=== PATIENT | female | born 1985 | race Caucasian/White ===

== ENCOUNTER → 2018-01-21 | Outpatient (CLI) | payer OTHER ==
--- NOTE | 2018-01-21 17:54 | US ---
EXAMINATION TYPE: US transvaginal DATE OF EXAM: 01/21/2018 COMPARISON: NONE CLINICAL HISTORY: N91.4 secondary oligomenorrhea. TECHNIQUE: . Transvaginal sonographic images of the pelvis were acquired. Date of LMP: Irregular cycles. Patient states 2-4 cycles per year EXAM MEASUREMENTS: Uterus: 6.5 x 3.5 x 3.8 cm Endometrial Stripe: 1.4 cm Right Ovary: 3.0 x 2.3 x 2.1 cm Left Ovary: 3.3 x 2.2 x 2.2 cm 1. Uterus: Anteverted wnl 2. Endometrium: Multiple cystic appearing areas visualized within endometrium. Measuring upper limit s of nomal 3. Right Ovary: Multiple follicles visualized along the periphery of the ovary 4. Left Ovary: Multiple follicles visualized along the periphery of the ovary. 5. Bilateral Adnexa: wnl 6. Posterior cul-de-sac: wnl IMPRESSION: Mild hypertrophy of the endometrium. No endometrial mass.
== END | disposition home or self-care (01) ==
LOC: RADUSWWP 16:51
PROVIDERS: ATTEND Obstetrics & Gynecology
DX: N85.00 Endometrial hyperplasia, unspecified (principal)
CPT/HCPCS: 76830

== ENCOUNTER → 2018-08-13 | Outpatient (CLI) | payer OTHER ==
--- NOTE | 2018-08-13 12:31 | MM ---
Reason for exam: clinical finding. Last mammogram was performed 8 months ago. Physical Findings: Nurse did not find any significant physical abnormalities on exam. [facility] Mammo LT w CAD CC and MLO view(s) were taken of the left breast. Prior study comparison: December 09, 2017, mammogram. The breast tissue is heterogeneously dense. This may lower the sensitivity of mammography. There is no discrete abnormality. These results were verbally communicated with the patient and result sheet given to the patient on 08/13/18. ASSESSMENT: Negative, BI-RAD 1 RECOMMENDATION: Routine screening mammogram of both breasts at age 42. Manage on a clinical basis with regard to non-spontaneous nipple discharge.
== END | disposition home or self-care (01) ==
LOC: RADMAMWWP 07:28
PROVIDERS: ATTEND Internal Medicine
DX: N64.4 Mastodynia (principal)
CPT/HCPCS: 77065

== ENCOUNTER 2019-05-01 13:25 | Emergency (ER) | payer OTHER ==
[2019-05-01 13:45] VITALS: BP 133/63; PULSE 103; RESP 18; TEMP 97.8
[2019-05-01] MEDS ORDERED: ACET/COD 300 MG/30 MG STARTER PACK 6 TAB BTL PO STA (14:27)
--- NOTE | 2019-05-01 14:28 | ED ---
Back Pain HPI - General Chief Complaint: Back Pain/Injury Stated Complaint: Low back pain Time Seen by Provider: 05/01/19 14:15 Source: patient, RN notes reviewed Limitations: no limitations - History of Present Illness Initial Comments: 34-year-old female presents to the emergency Department with chief complaint of low back pain. Patient states she injured it a few weeks ago raking leaves. States in the first 30 minutes of raking leaves she had some pain but states that she continues to work for the next 2 hours. Patient states the pain has improved but states that has not resolved. Denies any bowel bladder incontinence or retention. No abdominal pain she occasionally has some pain at reexamined her left leg. No paresthesias no saddle anesthesias. Patient has downing d prior x-rays on her back with mild degenerative changes. Patient offers no complaints. - Related Data Home Medications Medication Instructions Recorded Confirmed Escitalopram [Lexapro] 10 mg PO DAILY 05/10/18 05/14/18 Levothyroxine Sodium 25 mcg PO DAILY 05/10/18 05/14/18 Previous Rx's Medication Instructions Recorded Cyclobenzaprine [Flexeril] 5 mg PO TID PRN #15 tablet 05/01/19 Ibuprofen [Motrin] 600 mg PO Q8HR PRN #20 tab 05/01/19 predniSONE 50 mg PO DAILY #5 tab 05/01/19 Allergies Allergy/AdvReac Type Severity Reaction Status Date / Time No Known Allergies Allergy Verified 05/01/19 13:45 Review of Systems ROS Statement: Those systems with pertinent positive or pertinent negative responses have been documented in the HPI. ROS Other: All systems not noted in ROS Statement are negative. Past Medical History Past Medical History: Thyroid Disorder Additional Past Medical History / Comment(s): Anemia - receiving Iron infusion x 5 days, PCOS History of Any Multi-Drug Resistant Organisms: C-DIFF Date of last positivie culture/infection: April 06, 2018 April 28, 2018 - cleared of C-Diff MDRO Source:: stool Past Surgical History: Cholecystectomy, Tonsillectomy Past Psychological History: Anxiety, Depression Smoking Status: Current every day smoker Past Alcohol Use History: Occasional Past Drug Use History: None Reported General Exam Limitations: no limitations General appearance: alert, in no apparent distress Head exam: Present: atraumatic, normocephalic, normal inspection Eye exam: Present: normal appearance, PERRL, EOMI. Absent: scleral icterus, conjunctival injection, periorbital swelling ENT exam: Present: normal exam, normal oropharynx, mucous membranes moist Respiratory exam: Present: normal lung sounds bilaterally. Absent: respiratory distress, wheezes, rales, rhonchi, stridor Cardiovascular Exam: Present: regular rate, normal rhythm, normal heart sounds. Absent: systolic murmur, diastolic murmur, rubs, gallop, clicks GI/Abdominal exam: Present: soft, normal bowel sounds. Absent: distended, tenderness, guarding, rebound, rigid Extremities exam: Present: normal inspection, full ROM, normal capillary refill, other (Lower extremities equal color equal strength neurovascular intact). Absent: tenderness, pedal edema, joint swelling, calf tenderness Back exam: Present: normal inspection, full ROM (Mild discomfort with range of motion lumbar), tenderness (Left lower lumbar), muscle spasm, paraspinal tenderness. Absent: vertebral tenderness Neurological exam: Present: alert, oriented X3, CN II-XII intact, reflexes normal. Absent: motor sensory deficit Course Vital Signs 05/01/19 13:41 Temperature 97.8 F Pulse Rate 103 H Respiratory 18 Rate Blood Pressure 133/63 O2 Sat by Pulse 98 Oximetry Medical Decision Making - Medical Decision Making Patient has a lumbar strain with no red flag symptoms. Patient's had prior imaging she had no dramatic injury at this time. Conservative treatment including heat rest ice and close follow-up will be started. Return parameters were discussed Disposition Clinical Impression: Strain of lumbar region Disposition: HOME SELF-CARE Condition: Stable Instructions (If sedation given, give patient instructions): Acute Low Back Pain (ED) Additional Instructions: Please return to the Emergency Department if symptoms worsen or any other concerns. Prescriptions: Cyclobenzaprine [Flexeril] 5 mg PO TID PRN #15 tablet PRN Reason: Muscle Spasm Ibuprofen [Motrin] 600 mg PO Q8HR PRN #20 tab PRN Reason: Pain predniSONE 50 mg PO DAILY #5 tab Is patient prescribed a controlled substance at d/c from ED?: No Referrals: Evens Ramos MD [Primary Care Provider] - 1-2 days Time of Disposition: 14:28
== END 2019-05-01 14:42 | disposition home or self-care (01) ==
LOC: EC 13:25
DX: S39.012A Strain of muscle, fascia and tendon of lower back, initial encounter (principal); M79.605 Pain in left leg; E07.9 Disorder of thyroid, unspecified; D64.9 Anemia, unspecified; F32.9 Major depressive disorder, single episode, unspecified; F41.9 Anxiety disorder, unspecified; F17.200 Nicotine dependence, unspecified, uncomplicated; Z79.890 Hormone replacement therapy; Z79.899 Other long term (current) drug therapy; X50.9XXA Other and unspecified overexertion or strenuous movements or postures, initial encounter; Y93.H1 Activity, digging, shoveling and raking
CPT/HCPCS: 99283

== ENCOUNTER → 2019-05-02 | Outpatient (CLI) | payer OTHER ==
--- NOTE | 2019-05-02 13:48 | US ---
EXAMINATION TYPE: US bladder DATE OF EXAM: 05/02/2019 COMPARISON: NONE CLINICAL HISTORY: R10.2 PELVIC AND PERINEAL PAIN. Pelvic pain EXAM MEASUREMENTS: Post Void Residual Volume: 10.6 mL Urinary bladder is anechoic and unremarkable with no wall thickening. Color Doppler performed to assess ureteral jets. Bilateral Jets seen: yes Normal Post Void Residual (less than 50ml): yes IMPRESSION: No abnormal post void residual in the urinary bladder. Urinary bladder is anechoic and u nremarkable with bilateral urinary bladder jets visualized.
--- NOTE | 2019-05-02 13:49 | US ---
EXAMINATION TYPE: US transvaginal DATE OF EXAM: 05/02/2019 COMPARISON: NONE CLINICAL HISTORY: R10.2 Pelvic and perineal pain. Pelvic pain, irregular menses TECHNIQUE: Transvaginal (TV). Date of LMP: 4 months ago EXAM MEASUREMENTS: Uterus: 7.9 x 3.6 x 4.9 cm Endometrial Stripe: 0.9 cm Right Ovary: 4.0 x 2.0 x 1.8 cm Left Ovary: 2.9 x 2.0 x 1.9 cm 1. Uterus: Anteverted 2. Endometrium: multiple cystic areas noted [place]/upper cervix, likely small nabothian cysts. 3. Right Ovary: follicles noted, physiologic 4. Left Ovary: follicles noted, physiologic 5. Bilateral Adnexa: appears wnl 6. Posterior cul-de-sac: wnl IMPRESSION: Unremarkable pelvic ultrasound. Physiologic follicular changes of the ovaries. Endometria l thickness is within normal limits.
== END | disposition home or self-care (01) ==
LOC: RADUSWWP 12:07
PROVIDERS: ATTEND Obstetrics & Gynecology
DX: R10.2 Pelvic and perineal pain (principal)
CPT/HCPCS: 76830; 76857

== ENCOUNTER → 2019-11-14 | Outpatient (CLI) | payer BC ==
--- NOTE | 2019-11-15 10:29 | MR ---
EXAMINATION TYPE: MR pelvis wo/w con DATE OF EXAM: 11/14/2019 COMPARISON: Bladder and vaginal ultrasound May 02, 2019. HISTORY: Periurethral cyst, cyst in the opening of the vagina per patient. CONTRAST: Standard multiplanar, multisequence MRI departmental protocol utilizing 11 mL intravenous Gadavist ga dolinium contrast. Imaging is performed of the pelvis. FINDINGS: Rectum and visualized sigmoid colon are unremarkable. Anterior to this there is an anteverted uterus with a few tiny nabothian cysts in the cervix. No free fluid in pelvic cul-de-sac. Both ovaries are identified and normal in size with scattered peripheral follicles on the coronal images. Anterior to this urinary bladder shows suboptimal distention with bladder wall thickness measuring up per limits of normal. No suspicious intraluminal mass is present. Some filling of contrast dependentl y is felt present on postcontrast images. There is poor fat plane separation of the posterior bladder wall from the anterior cervix. Corresponding to the history there is just posterior to the pubic symphysis and inferior to the bladd er a fairly thin walled cyst measuring 4.3 cm craniocaudal dimension coronal image 11 x 3.7 cm AP by 3.1 cm transversely axial image 15. On sagittal image 20 there is probable significant mass effect wi th posterior displacement of the endometrial canal at level of the vagina. Urethra not seen with cert ainty but likely is deviated to left of midline from the slightly right sided lesion. No suspicious t hickened septa or nodular enhancement. Lesion is of uniform low T1 and increased T2 signal though sli ghtly lower intensity than fluid in the bladder. Visualized osseous structures are intact. IMPRESSION: Confirmation of 4.3 cm lower pelvic thin-walled cyst of uncertain etiology as difficult t o localize to the anterior aspect vagina or the periurethral tissue. Differential includes Tim du ct cyst, [place] duct cyst though this is typically inferior to the pubic symphysis. Consider voiding V CUG to exclude direct urethral connection. Lesion almost certainly is benign but likely warrants surg ical excision or drainage due to size and local mass effect.
== END | disposition home or self-care (01) ==
LOC: RADMRIMAIN 12:31
PROVIDERS: ATTEND Urology
DX: N36.8 Other specified disorders of urethra (principal)
CPT/HCPCS: 72197; A9585

== ENCOUNTER 2020-07-17 23:23 | Emergency (ER) | payer BC ==
[2020-07-17 23:36] VITALS: BP 119/58; PULSE 90; RESP 18; TEMP 98.6
[2020-07-17] MEDS ORDERED: LIDOCAINE 1% INJ 10MG/ML (20 ML MDV) SQ ONE (23:45)
[2020-07-17] MEDS ORDERED: BACITRACIN OINT 1 EACH PACKET TOPICAL ONE (23:45)
--- NOTE | 2020-07-18 00:38 | ED ---
Skin/Abscess/FB HPI - General Chief complaint: Skin/Abscess/Foreign Body Stated complaint: Abscess Time Seen by Provider: 07/17/20 23:39 Source: patient Mode of arrival: ambulatory Limitations: no limitations - History of Present Illness Initial comments: Patient is a 35-year-old female presenting to the emergency Department with complaints of an abscess in her right groin. Patient states she has had these in the past. She states she has been trying to do warm compresses to the area but over the past 24 hours it has gotten large and very painful. She denies any fever or chills, no nausea or vomiting. She has no further complaints at this time. - Related Data Home Medications Medication Instructions Recorded Confirmed Escitalopram [Lexapro] 10 mg PO DAILY 05/10/18 05/14/18 Levothyroxine Sodium 25 mcg PO DAILY 05/10/18 05/14/18 Previous Rx's Medication Instructions Recorded Cyclobenzaprine [Flexeril] 5 mg PO TID PRN #15 tablet 05/01/19 Ibuprofen [Motrin] 600 mg PO Q8HR PRN #20 tab 05/01/19 predniSONE 50 mg PO DAILY #5 tab 05/01/19 Cephalexin [Keflex] 500 mg PO Q6HR 5 Days #20 cap 07/18/20 Allergies Allergy/AdvReac Type Severity Reaction Status Date / Time No Known Allergies Allergy Verified 07/17/20 23:36 Review of Systems ROS Statement: Those systems with pertinent positive or pertinent negative responses have been documented in the HPI. ROS Other: All systems not noted in ROS Statement are negative. Past Medical History Past Medical History: Thyroid Disorder Additional Past Medical History / Comment(s): Anemia - receiving Iron infusion x 5 days, PCOS, Hidradenitis suppurativa, urethra reconstruction due to cyst History of Any Multi-Drug Resistant Organisms: C-DIFF Date of last positivie culture/infection: April 06, 2018 April 28, 2018 - cleared of C-Diff MDRO Source:: stool Past Surgical History: Cholecystectomy, Tonsillectomy Past Psychological History: Anxiety, Depression Smoking Status: Current every day smoker Past Alcohol Use History: Occasional Past Drug Use History: Marijuana General Exam - General Exam Comments Initial Comments: GENERAL: Patient is well-developed and well-nourished. Patient is nontoxic and in no acute distress. HEAD: Atraumatic, normocephalic. EYES: Pupils equal round and reactive to light, extraocular movements intact, sclera anicteric, conjunctiva are normal. Eyelids were unremarkable. ENT: TMs normal, nares patent, oropharynx clear without exudates. Moist mucous membranes. NECK: Normal range of motion, supple without lymphadenopathy or JVD. LUNGS: Unlabored respirations. Breath sounds clear to auscultation bilaterally and equal. No wheezes rales or rhonchi. HEART: Regular rate and rhythm without murmurs, rubs or gallops. ABDOMEN: Soft, nontender, normoactive bowel sounds. No guarding, no rebound. No masses appreciated. : Deferred MUSCULOSKELETAL: Normal extremities with adequate strength and normal range of motion, no pitting or edema. No clubbing or cyanosis. NEUROLOGICAL: Patient is alert and oriented x 3. Motor and sensory are also intact. Cranial nerves II through XII grossly intact. Symmetrical smile. Normal speech, normal gait. PSYCH: Normal mood, normal affect. SKIN: Warm, Dry, normal turgor. Patient has a small 0.5 cm abscess to the right groin, that is erythematous surrounding the abscess, tender to palpation, po sitive fluctuance. No spreading erythema. Limitations: no limitations Course Vital Signs 07/17/20 23:31 Temperature 98.6 F Pulse Rate 90 Respiratory 18 Rate Blood Pressure 119/58 O2 Sat by Pulse 100 Oximetry Procedures - Incision & Drainage Consent Obtained: verbal consent, written consent Indication: Abscess Site: other (Right groin) Size (cm): 0 (0.5) Anesthetic Used: lidocaine 1% Amount (mLs): 1 I&D Cleaning Method: Alcohol Wipe Scalpel Used: #11 I&D Drainage Obtained: Pus, Blood Culture Obtained?: No Patient Tolerated Procedure: well Medical Decision Making - Medical Decision Making Patient is a 35-year-old female here with a small abscess of the right groin. Her vitals are stable, no fevers, no other findings on exam. I&D was performed to the abscess, revealed pus and blood. Patient reports improvement in her pain. She will apply warm compresses to the area, she is stable for discharge. We'll give her a few days of antibiotic secondary to history of infections. Patient is stable for discharge. Patient is in agreement with this plan of care. Return parameters were discussed with the patient and they verbalized understanding. Case discussed with Dr. Malone. Disposition Clinical Impression: Abscess of right groin Disposition: HOME SELF-CARE Condition: Stable Instructions (If sedation given, give patient instructions): Abscess Incision and Drainage (ED) Additional Instructions: Please return to the Emergency Department if symptoms worsen or any other concerns. Continue to apply warm compresses throughout the day to the right groin. Take antibiotics if there is no improvement. Follow-up with your regular physician. Prescriptions: Cephalexin [Keflex] 500 mg PO Q6HR 5 Days #20 cap Is patient prescribed a controlled substance at d/c from ED?: No Referrals: Sally Siu NPC [Primary Care Provider] - 1-2 days
== END 2020-07-18 00:48 | disposition home or self-care (01) ==
LOC: EC 23:23
DX: L02.214 Cutaneous abscess of groin (principal); E07.9 Disorder of thyroid, unspecified; F41.9 Anxiety disorder, unspecified; F32.9 Major depressive disorder, single episode, unspecified; F17.200 Nicotine dependence, unspecified, uncomplicated; Z79.890 Hormone replacement therapy; Z79.899 Other long term (current) drug therapy
CPT/HCPCS: 99282; 10060; J2001